=== PATIENT | male | born 1980 | race Two or more races ===

== ENCOUNTER 2021-12-13 22:47 | Emergency (ER) | payer OTHER ==
[~2021-12-13] VITALS: Ht 170.2 cm; Wt 97.5 kg
--- NOTE | 2021-12-13 22:58 | NUR ---
BIBS C/O "SUDDEN SOB/PALPITATIONS WHILE DRIVING" UPON TRIAGE NO LONGER SOB/PALPITATIONS. PT A/OX4. TOLERATING R/A WELL AT 98%. CONNECTED PT TO POX AND MONITOR.
[2021-12-13 23:48] VITALS: BP 131/67
--- NOTE | 2021-12-13 23:48 | NUR ---
Patient discharged to home in stable condition. Written and verbal after care instructions given. Patient verbalizes understanding of instruction. PT ambulatory with a steady gait. VSS
== END 2021-12-13 23:48 | disposition home or self-care (01) ==
LOC: ER 23:46
DX: F41.0 Panic disorder [episodic paroxysmal anxiety] (principal); Z60.2 Problems related to living alone